=== PATIENT | female | born 1955 | race Caucasian/White ===

== ENCOUNTER → 2018-04-06 | Outpatient (CLI) | payer OTHER | LOC: FIMAGING 11:08 | PROVIDERS: ATTEND Orthopaedic Surgery | DX: M16.0 Bilateral primary osteoarthritis of hip (principal); M51.37 Other intervertebral disc degeneration, lumbosacral region ==

== ENCOUNTER 2018-05-02 08:09 | Inpatient (IN) | payer OTHER ==
[~2018-05-02 08:09] MED LIST: POVIDONE-IODINE 20 ML in SODIUM CL IRRIG SOLUTION 500 ML IRR ONE; ROPIVACAINE 0.2% 80 MG, EPINEPHrine 0.2 MG, KETOROLAC TROMETHAMINE 30 MG in SYRINGE 0 ML IU ONE; TRANEXAMIC ACID 1,000 MG in NS 100 ML IV ONE
[2018-05-02] MEDS ORDERED: BUPIVACAINE/EPI 0.5% 30 ML SDV ONE (08:17)
[2018-05-02] MEDS ORDERED: ceFAZolin 2 GM/DEXTROSE 100 ML IV ONE (08:31)
[2018-05-02] MEDS ORDERED: FAMOTIDINE 20 MG TAB PO ONE (08:31)
[2018-05-02] MEDS ORDERED: ACETAMINOPHEN 325 MG TAB PO ONE (08:31)
[2018-05-02] MEDS ORDERED: DEXAMETHASONE 4 MG/ML VIAL IVP ONE (08:31)
[2018-05-02] MEDS ORDERED: LR 1,000 ML IV ONE (08:35)
--- NOTE | 2018-05-02 08:45 | PDANEPAE ---
ANE Past Medical History - Cardiovascular History Hx Hypertension: No Hx Arrhythmias: No Hx Chest Pain: No Hx Coronary Artery / Peripheral Vascular Disease: No Hx CHF / Valvular Disease: No Hx Palpitations: No - Pulmonary History Hx COPD: No Hx Asthma/Reactive Airway Disease: Yes Hx Recent Upper Respiratory Infection: No Hx Oxygen in Use at Home: No Hx Sleep Apnea: No Pulmonary History Comment: sinus infections trigger asthma - Neurologic History Hx Cerebrovascular Accident: No Hx Seizures: No Hx Dementia: No - Endocrine History Hx Diabetes: No - Renal History Hx Renal Disorders: No - Liver History Hx Hepatic Disorders: No - Neurological & Psychiatric Hx Hx Neurological and Psychiatric Disorders: Yes Neurological / Psychiatric History Comment: 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 depression - Cancer History Hx Cancer: No - Congenital Disorder History Hx Congenital Disorders: No - GI History Hx Gastrointestinal Disorders: Yes Gastrointestinal History Comment: chronic constipation - Other Health History Other Health History: psoriasis. palms of both hands and soles of feet ankles. post menapausal - Chronic Pain History Chronic Pain: Yes (spinal stenosis) - Surgical History Prior Surgeries: 07/14 total L shoulder replacement. 03/14 L sinus surgery. carpal tunnel Left trigger thumb release ANE Review of Systems Review of Systems: ANE Patient History - Allergies Allergies/Adverse Reactions: clindamycin Allergy (Verified 04/12/18 08:41) Swelling/neck,face,throat erythromycin base Allergy (Verified 04/12/18 08:41) Rash etodolac Allergy (Verified 04/12/18 08:41) Hypertension Sulfa (Sulfonamide Antibiotics) Allergy (Verified 04/25/18 14:05) Swelling/Headache - Home Medications Home Medications: Aspirin [Aspirin 81mg (*)] 81 mg PO DAILY 04/12/18 [Last Taken 04/24/18] Betamethasone/Propylene Glyc [Betamethasone Dp Aug 0.05% Crm] 1 gm TP BID [Last Taken 05/02/18 06:00] Calcitriol 3mcg/Gm Oint 1 marcia TP BID 04/12/18 [Last Taken 05/02/18 06:00] Clobetasol Propionate [Clobex] 1 spray TP DAILY PRN 04/12/18 [Last Taken 09:00] Fluticasone/Salmeter 100/50Mcg [Advair 100/50 (*)] 1 puffs IH DAILY 04/12/18 [ Last Taken 05/02/18 06:00] Ibuprofen [Motrin (*)] 400 mg PO Q8HRS PRN 04/12/18 [Last Taken 1 Week Ago ~] Levothyroxine [Synthroid 100 mcg (*)] 100 mcg PO DAILY06 04/12/18 [Last Taken 05:14] traMADol [Ultram 50 mg (*)] 50 mg PO Q6HRS PRN 04/12/18 [Last Taken 1 Week Ago ~ 04/25/18] Ventolin Hfa 05/02/18 [Last Taken 05/02/18 06:45] - Smoking Hx Smoking Status: Former smoker - Family Anes Hx Family Hx Anesthesia Complications: mom and sister difficult to reverse ANE Physical Exam - Airway Neck exam: FROM Mallampati Score: Class 2 Mouth exam: normal dental/mouth exam - Pulmonary Pulmonary: clear to auscultation - Cardiovascular Cardiovascular: regular rate and rhythym - ASA Status ASA Status: III ANE Anesthesia Plan Anesthesia Plan: spinal
--- NOTE | 2018-05-02 09:53 | PDHPUP ---
History & Physical Update H&P update statement: This history and physical update is based on an assessment of the patient which was completed after admission or registration (within 24 hours), but prior to the surgery/procedure. H&P update: H&P reviewed & patient examined, no change in patient's condition since H&P completed
[2018-05-02] MEDS ORDERED: PROPOFOL/EMULSION 500 MG/50 ML BOTTLE IV ONE (10:05)
[2018-05-02] MEDS ORDERED: BUPIVACAINE/DEXTROSE 7.5MG/ML 2 ML SPINAL AMP SP ONE (10:14)
[2018-05-02] MEDS ORDERED: fentaNYL 100 MCG/2 ML INJ ONE ×4 (10:42→12:56)
--- NOTE | 2018-05-02 11:13 | POSTANESTH ---
Post Anesthetic Evaluation Cardiovascular Status: Normal, Stable Respiratory Status: Normal, Stable Level of Consciousness/Mental Status: Can Participate in Eval Pain Control: Adequate, Prn Tx Ordered Nausea/Vomiting Control: Adequate, Prn Tx Ordered Complications Possibly Related to Anesthesia: None Noted
[2018-05-02] MEDS ORDERED: ROCURONIUM 50 MG/5 ML VIAL ONE (11:27)
[2018-05-02] MEDS ORDERED: ePHEDrine SULFATE 25 MG/5 ML SYR ONE (11:27)
[2018-05-02] MEDS ORDERED: LR 500 ML IV PRN (12:13)
[2018-05-02] MEDS ORDERED: PHENYLEPHRINE HCL 100 MCG/ML SYR IVP PRN (12:13)
[2018-05-02] MEDS ORDERED: DIAZEPAM 5 MG/ML 1 ML SYR IVP PRN (12:13)
[2018-05-02] MEDS ORDERED: LABETALOL HCL 5 MG/ML 20 ML MDV IVP PRN (12:13)
[2018-05-02] MEDS ORDERED: METOCLOPRAMIDE 10 MG/2 ML VIAL IVP PRN ×2 (12:13→13:00)
[2018-05-02] MEDS ORDERED: PROMETHAZINE HCL 25 MG/ML INJ IVP PRN ×2 (12:13→13:00)
[2018-05-02] MEDS ORDERED: MEPERIDINE 25 MG/0.5 ML AMP IVP PRN (12:13)
[2018-05-02] MEDS ORDERED: NALOXONE HCL 0.4 MG/ML INJ IVP PRN (12:13)
[2018-05-02] MEDS ORDERED: ONDANSETRON 4 MG/2 ML VIAL IVP PRN ×2 (12:13→13:00)
[2018-05-02] MEDS ORDERED: DEXAMETHASONE 4 MG/ML VIAL IVP PRN (12:13)
[2018-05-02] MEDS ORDERED: ALBUTEROL 3 ML DEYVIAL IH PRN (12:13)
[2018-05-02] MEDS ORDERED: ONDANSETRON 4 MG/2 ML VIAL ONE (12:16)
[2018-05-02] MEDS ORDERED: DEXAMETHASONE 4 MG/ML VIAL ONE (12:16)
[2018-05-02] MEDS ORDERED: GLYCOPYRROLATE 0.2 MG/1 ML VIAL ONE (12:29)
[2018-05-02] MEDS ORDERED: NEOSTIGMINE METHYLSULFATE 5 MG/5 ML SYR ONE (12:29)
[2018-05-02] MEDS: fentaNYL 100 MCG/2 ML INJ IVP PRN ×3 (12:58→13:53)
[2018-05-02] MEDS ORDERED: diphenhydrAMINE 25 MG CAP PO PRN (13:00)
[2018-05-02] MEDS ORDERED: PROMETHAZINE HCL 25 MG SUPPR PR PRN (13:00)
[2018-05-02] MEDS ORDERED: DIPHENOXYLATE/ATROPINE LOMOTIL 1 TAB PO PRN (13:00)
[2018-05-02] MEDS ORDERED: POLYETHYLENE GLYCOL 3350 17 GM PKT PO PRN (13:00)
[2018-05-02] MEDS ORDERED: TEMAZEPAM 15 MG CAP PO PRN (13:00)
[2018-05-02] MEDS ORDERED: ONDANSETRON DISINTEGRATING 4 MG TAB PO PRN (13:00)
[2018-05-02] MEDS ORDERED: LACTULOSE 20 GM/30 ML UDCUP PO PRN (13:00)
[2018-05-02] MEDS ORDERED: MAGNESIUM HYDROXIDE 30 ML UDCUP PO PRN (13:00)
[2018-05-02] MEDS ORDERED: LR 1,000 ML IV SCH (13:00)
[2018-05-02] MEDS ORDERED: BISACODYL 10 MG SUPP PR PRN (13:00)
--- NOTE | 2018-05-02 13:00 | POSTOPPROG ---
Post Op Note Date of Operation: 05/02/18 Surgeon: Adi Kim [employer] Workers: JANI Weiner Anesthesiologist: MD Cait Anesthesia: GET(General Endotracheal) Pre-op Diagnosis: R hip OA Post-op Diagnosis: same Procedure: R ant RENE with ONEL Inf/Abcess present in the surg proc area at time of surgery?: No EBL: 100-500 (300) Drains: Hemovac
[2018-05-02] MEDS ORDERED: CLOBETASOL PROPIONATE TP PRN (13:02)
[2018-05-02] MEDS ORDERED: HYDROmorphONE/DILAUDID 2 MG/ML INJ ONE (13:19)
[2018-05-02] MEDS: HYDROmorphONE/DILAUDID 2 MG/ML INJ IVP PRN ×2 (13:22→13:33)
--- NOTE | 2018-05-02 17:10 | GOP ---
DATE OF OPERATION: 05/02/2018 SURGEON: Adi Kim MD WORKERS COMPENSATION ADMINISTRATOR: Adair Weiner, CSFA, LSA. Veterinary Medical Officer was required for the procedure due to the complex ity of the case. The patient's condition for positioning, prepping and draping, retraction and closu re. ANESTHESIA: General endotracheal. PREOPERATIVE DIAGNOSIS: Right hip osteoarthritis. POSTOPERATIVE DIAGNOSIS: Right hip osteoarthritis. PROCEDURE PERFORMED: Right hip anterior approach hip replacement, MAKOplasty, [facility], greater than 1 hour. FINDINGS: SPECIMENS: Femoral head. ESTIMATED BLOOD LOSS: 300 cc. INDICATIONS: Patient has severe hip osteoarthritis that failed to improve with conservative measures significantly affecting activities of daily living including walking. Patient elected to proceed wi th anterior hip replacement using MAKOplasty robotic guidance. After extensive discussion, all possi ble approaches as well as risks, benefits, pros, cons, expected recovery and prognosis, patient verba lized understanding of risks and benefits of the procedure and signed informed consent prior to the p rocedure. DESCRIPTION OF PROCEDURE: The patient is seen in the holding area and the operative consent and extr emity were signed. The patient was taken to the operating room. After smooth induction of general a nesthesia, patient placed in supine position on the operating table with the arch table extension. H ip and contralateral iliac crest were prepped and draped in usual sterile fashion. Operative site wa s confirmed by signature. Time-out performed. Allergies reviewed. Antibiotics and TXA were adminis tered. Three pins were placed on the contralateral iliac crest and pelvic array was fixed as well visualized by the robot. The desired incision for the anterior approach on the hip was infiltrated with 0.25% Marcaine with epinephrine. Incision was made with a 10 blade, carried through subcutaneous tissue, t o identify the TFL fascia. This was incised in line with the incision. The TFL was retracted latera lly. The lateral femoral circumflex vessels were coagulated with Aquamantys. The deep TFL fascia wa s incised and vastus lateralis was clearly exposed. Pericapsular fat was excised. A T-shaped capsul otomy was performed and the capsule was preserved for later closure. The femoral neck cut was then p erformed based on pre templated calculations and imaging. The femoral head was excised with corkscre w. The acetabulum was exposed in standard fashion. The pulvinar and soft tissues were excised sharply. The pelvic checkpoint was placed in the AIIS. Acetabular registration was performed using the robot . Reaming was performed using the robot to desired size. Cup was impacted in place with robotic linda dance system. A good fixation was achieved. The cup was irrigated and dried, and the liner was impa cted into place achieving good locking within the cup. Femur was exposed in standard fashion. The f emur was broached to the desired size. Trial neck and head were fashioned. Hip was relocated. The position of all components was confirmed at this point fluoroscopically. The foot was externally rota nafisa 90 degrees, extended and stability was confirmed. The hip was then dislocated. The femoral tria l components were removed. The stem was impacted into place. Trunnion was cleaned and dried and the head was impacted on the trunnion. The wound was copiously irrigated including the cup with pulse l avage, and the hip was once again relocated. Component placement was confirmed fluoroscopically. All checkpoints were removed, the pelvic array was also removed. The wound was copiously irrigated w ith sterile solution. Dilute Betadine was then irrigated into the wound and allowed to sit for 3 min utes before being irrigated out. The joint cocktail was injected in the soft tissue. The capsule an d the indirect head of the rectus femoris were repaired with #1 Vicryl sutures. A drain was placed e xiting distally from the TFL. The wound was closed in layers with #0 Quill in the TFL fascia and kristy p subcutaneous fat, 3-0 Versalok in the dermis. The wound was then dressed with sterile dressings. The patient was safely awakened, extubated, taken to recovery room in stable condition. All critical portions of the procedure were performed by myself, Dr. Kim. This operative note was c reated by myself and I was immediately available for emergency cross-coverage at all times. DRAINS: Hemovac x1. COMPLICATIONS: None. IMPLANTS: Trident II hemispherical acetabular shell size 50, with a 32 mm, 0 degree polyethylene yusuf er; Accolade 2, size 5 stem, 127 degree offset, 32 mm, -4 head. /[id number]/MODL
[2018-05-02] MEDS: ACETAMINOPHEN 325 MG TAB PO SCH ×2 (18:05→23:13)
[2018-05-02] MEDS: ceFAZolin 2 GM/DEXTROSE 100 ML IV SCH (20:32)
[2018-05-02] MEDS: SENNOSIDES/DOCUSATE SODIUM TAB PO SCH (20:33)
[2018-05-02] MEDS: FAMOTIDINE 20 MG TAB PO SCH (20:34)
[2018-05-02] MEDS: ASPIRIN 81 MG CHEWABLE TAB PO SCH (20:34)
[2018-05-02] MEDS ORDERED: CALCITRIOL 3 MCG/GM TP SCH (21:00)
[2018-05-02] MEDS: CALCIPOTRIENE 0.005% TP SCH (22:13)
[2018-05-02] MEDS: BETAMETHASONE AUGMENTED 0.05% 15GM CREAM TP SCH (22:13)
[2018-05-02] MEDS: traMADol 50 MG TAB PO PRN (23:13)
[2018-05-03] MEDS: CYCLOBENZAPRINE 10 MG TAB PO PRN ×2 (01:17→10:21)
[2018-05-03] MEDS: ceFAZolin 2 GM/DEXTROSE 100 ML IV SCH (01:39)
[2018-05-03 04:15] VITALS: BP 113/64
[2018-05-03] MEDS: traMADol 50 MG TAB PO PRN (04:44)
[2018-05-03] MEDS: ACETAMINOPHEN 325 MG TAB PO SCH ×2 (04:44→13:39)
[2018-05-03] MEDS: oxyCODONE IR 5 MG TAB PO PRN ×3 (04:45→13:40)
[2018-05-03] MEDS ORDERED: LEVOTHYROXINE 100 MCG TAB PO SCH (06:00)
--- NOTE | 2018-05-03 07:33 | SOAPPROG ---
SOAP Progress Note Assessment/Plan: Assessment: Postop day 1 status post right anterior approach total hip arthroplasty with Lon Plan: Weight-bearing as tolerated, PT/OT DVT prophylaxis: SCDs, Holden Hose, aspirin 81 mg twice daily x3 weeks Incentive spirometry 10 times per hour Disposition: Pending after PT 05/03/18 07:31 Subjective: Patient had some difficulty sleeping increased pain at 3:00 a.m.. Pain better controlled this morning. Denies fevers chills nausea vomiting chest pain shortness breath numbness or tingling Objective: Vital Signs Temp Pulse Resp BP Pulse Ox 36.9 C 89 16 113/64 98 05/03/18 04:00 05/03/18 04:00 05/03/18 04:00 05/03/18 04:00 05/03/18 04:00 Laboratory Results 05/03/18 04:36 05/02/18 05/03/18 05/04/18 05:59 05:59 05:59 Intake Total 1955 Output Total 1285 Balance 670 Awake alert and oriented x3 Easy nonlabored breathing Right hip: Dressing clean dry intact no erythema drainage or signs of infection Hemovac drain removed, site clean dry intact Thigh and calf compartments soft compressible Motor intact to EHL FHL tibialis anterior gastrocsoleus Palpable DP PT pulses ICD10 Worksheet Patient Problems: Problems Problem Status Onset Osteoarthritis of right hip Acute
[2018-05-03] MEDS: ASPIRIN 81 MG CHEWABLE TAB PO SCH (08:44)
[2018-05-03] MEDS: FAMOTIDINE 20 MG TAB PO SCH (08:44)
[2018-05-03] MEDS: SENNOSIDES/DOCUSATE SODIUM TAB PO SCH (08:44)
[2018-05-03] MEDS ORDERED: FLUTICASONE/SALMETER 100/50MCG DISKUS IH SCH (09:00)
--- NOTE | 2018-05-03 09:14 | PDMN ---
Medical Necessity Medical [place] [facility] [place]- OP: R RENE with ONEL ARM AUTH # [id number] FOR CPT 90155 DONE IN PT
[2018-05-03] MEDS: CALCIPOTRIENE 0.005% TP SCH (10:14)
[2018-05-03] MEDS: BETAMETHASONE AUGMENTED 0.05% 15GM CREAM TP SCH (10:14)
--- NOTE | 2018-05-03 13:53 | ASMTLACE ---
IRISE Length of stay for Answers: 2 days current admission Acuity / Level of Answers: Yes Care: Did the patient have an inpatient admission? Comorbidities - select Answers: Opioid dependence all that apply / Chronic pain # of Emergency department Answers: 0 visits in the last 6 months Social determinants Answers: Mental health diagnosis (anxiety, depression, pers onality disorders, etc.) Score: 12 Date Signed: 05/03/2018 01:53 PM Electronically Signed By:LELA Klein
--- NOTE | 2018-05-03 13:55 | ASMTCMCOM ---
CM Note CM Note Notes: Pt medically stable for d/c with spouse. PT rec home/outpatient. No CM d/c needs identified. Date Signed: 05/03/2018 01:54 PM Electronically Signed By:LELA Klein
--- NOTE | 2018-05-08 19:00 | GDS ---
ADMITTING DIAGNOSIS: Right hip osteoarthritis. DISCHARGE DIAGNOSIS: Right hip osteoarthritis. PROCEDURE PERFORMED: A right anterior approach total hip arthroplasty. HOSPITAL COURSE: Patient was admitted on the above date, underwent the above procedure. Pain was re latively well controlled. She received prophylactic antibiotics and DVT prophylaxis with aspirin 81 mg, SCDs, and TAMMY hose. She worked with physical therapy on postop day one and was cleared for disch arge home. DISCHARGE DISPOSITION: Home. CONDITION UPON DISCHARGE: Stable. /[id number]/MODL
== END 2018-05-03 14:09 | disposition home or self-care (01) | DRG 470 ==
LOC: F3N 08:09
PROVIDERS: ADMIT Orthopaedic Surgery; ATTEND Orthopaedic Surgery
PROC: 0SR904Z Replacement of Right Hip Joint with Ceramic on Polyethylene Synthetic Substitute, Open Approach (ICD-10-PCS; principal; 2018-05-02 09:00)
PROC: 8E0Y0CZ Robotic Assisted Procedure of Lower Extremity, Open Approach (ICD-10-PCS; principal; 2018-05-02 09:00)
DX: M16.11 Unilateral primary osteoarthritis, right hip (principal); J45.909 Unspecified asthma, uncomplicated; G51.0 Bell's palsy; F32.9 Major depressive disorder, single episode, unspecified; L40.9 Psoriasis, unspecified; E03.9 Hypothyroidism, unspecified
CPT/HCPCS: 97110-GP; 97116-GP; 97161-GP; 97165-GO; 97530-GP; J0171; J0690; J1100; J1170; J1885; J2270; J2405; J2550; J2704; J2710; J2795; J3010

== ENCOUNTER 2018-05-05 19:39 | Inpatient (IN) | payer OTHER ==
[2018-05-05] MEDS ORDERED: NS 500 ML IV ONE (19:46)
--- NOTE | 2018-05-05 20:07 | EDPHY ---
H & P Time Seen by Provider: 05/05/18 19:45 HPI/ROS: HPI Back and chest pain with taking a deep breath. Recent right hip surgery. 63-year-old female by private vehicle with family. This patient underwent a right total hip replacement by Dr. Nicola Davenprot of the Orthopedic service on of last week. She reports that she has had an intermittent fever since Sunday. She presents to the emergency department with complaint of pain, mid back and mid chest with deep breathing since about 4:00 p.m. this afternoon. She has not had a cough. She denies shortness of breath at rest and states that the pain is much more pronounced when she takes a deep breath. She states that she has had continued right hip pain since her surgery. She states that she has had a documented fever as high as 102 since Sunday. ROS: Constitutional: As above, no chills. No weakness. Eyes: No discharge. No changes in vision. ENT: No sore throat. No nasal congestion or rhinorrhea. Respiratory: No cough. No shortness of breath. Cardiac: As above, no palpitations. Gastrointestinal: No abdominal pain, no vomiting, no diarrhea. Genitourinary: No hematuria. No dysuria or increased frequency with urination. Musculoskeletal: As above. No neck pain. No myalgias or arthralgias. Skin: No rashes. Neurological: No headache. No focal weakness or altered sensation. Past medical history: Degenerative joint disease, spinal stenosis, scoliosis, shoulder replacement, asthma, as above. Social history: Nonsmoker. Here with family. No alcohol Physical Exam: General Appearance: Alert, she is not in distress. This patient is responding to questions appropriately and in full sentences. This patient appears well- hydrated and well-nourished. Eyes: Pupils equal and round no pallor or injection. No lid edema, erythema or injection. Respiratory: There are no retractions, lungs are clear to auscultation anteriorly with good air movement bilaterally. No tachypnea. Cardiovascular: Regular rate and rhythm. Borderline tachycardia. No murmur appreciated. Gastrointestinal: Abdomen is soft and nontender, no masses, bowel sounds normal. No focal tenderness at McBurney's point. No Gilliland sign. Neurological: Motor sensory function is grossly intact. Cranial nerves are normal. Gait is normal. Skin: Warm and dry, no rashes. Musculoskeletal: Neck is supple and nontender. Extremities are symmetrical. She has on compression stockings. Her right lateral thigh incision sites appear clean dry and intact without evidence of drainage or infection. There is very mild erythema involving the right lateral thigh soft tissues in comparison to the contralateral side. I do not appreciate an increase in warmth on palpation of her right lateral thigh compared to the left side as well as her abdomen. Psychiatric: No agitation. No depression. Database: EKG: EKG time is a p.m.; EKG shows a narrow complex normal sinus rhythm with a ventricular rate of 98. The IN, QRS, QT intervals are within normal limits. There are no ST-T wave changes indicative of ischemic or injury pattern. No evidence of right heart strain. Interpreted by me. Imaging: CT angiogram of chest: No PE. No pneumonia. No significant findings. Results were discussed with staff radiologist Dr. Shimon Lamar. Procedures: Emergency department course: Triage vital signs reviewed, she is afebrile, she was mildly tachycardic at 101. Vital signs are otherwise normal. Room air pulse oximetry 97%. IV was placed. She will be started on IV normal saline with 500 cc to be given over the next 2 hr. Her presentation is concerning for possible PE, possible infectious etiology given her history of fever. Patient will be given 0.5 mg for right hip pain. She has not taken any oral pain medication in some time. 9:15 p.m., the patient is currently down in CT. Troponin elevated at 0.19. Her EKG does not show any signs of ischemia or acute injury pattern. I feel acute coronary syndrome is unlikely. This elevated troponin is more likely demand related. 9:20 p.m., patient re-evaluated. She is resting comfortably at this time. She will provide us a urine sample. Results of her blood work including elevated troponin discussed. Need for admission discussed. She denies any chest pain at this time. 9:55 p.m., the patient was re-evaluated, no chest pain at this time. Results of her CT angiogram discussed. Urinalysis does not show evidence of infection. She may have a mild early cellulitis involving her right lateral thigh. This will be discussed with the hospitalist. Plan for admission discussed with her. Hospitalist paged. 10:25 p.m., spoke with on-call hospitalist, Dr. Goel, case discussed in detail with him. He accepts this patient for admission to telemetry observation. The patient will be started on IV Ancef in the emergency department for treatment of possible right lateral thigh cellulitis. The patient's remaining emergency department course under my care has been uneventful. She was admitted in stable condition to the hospitalist service. Cardiology consultation deferred to hospitalist service. Differential Diagnosis: The differential diagnosis on this patient includes but is not limited to pleurisy, pneumonia, PE, urinary tract infection, cellulitis. Postsurgical infection, acute coronary syndrome unlikely. This represents a partial list of diagnoses considered. These considerations are based on history, physical exam , past history, reassessment and diagnostic testing. Smoking Status: Former smoker Constitutional: Initial Vital Signs Temperature (C) 37.0 C 05/05/18 19:47 Heart Rate 101 H 05/05/18 19:47 Respiratory Rate 18 05/05/18 19:47 Blood Pressure 120/85 H 05/05/18 19:47 O2 Sat (%) 97 05/05/18 19:47 O2 Delivery Mode Nasal Cannula O2 (L/minute) 2 Allergies/Adverse Reactions: clindamycin Allergy (Verified 05/05/18 19:45) Swelling/neck,face,throat erythromycin base Allergy (Verified 05/05/18 19:45) Rash etodolac Allergy (Verified 05/05/18 19:45) Hypertension Sulfa (Sulfonamide Antibiotics) Allergy (Verified 05/05/18 19:45) Swelling/Headache Home Medications: Medication Instructions Recorded Albuterol [Ventolin Hfa Inhaler] 1 puffs IH BID PRN 05/06/18 Aspirin [Aspirin 81mg (*)] 81 mg PO BID 05/06/18 Betamethasone Augmented 0.05% 1 marcia TP BID 05/06/18 [Diprolene AF 0.05% (*)] Bisacodyl [Dulcolax] 5 mg PO TID 05/06/18 Calcipotriene [Dovonex] 1 marcia TP BID 05/06/18 Clobetasol Propionate [Clobex] 1 spray TP DAILY PRN 05/06/18 Cyclobenzaprine [Flexeril 10 MG 10 mg PO TID 05/06/18 (*)] Fluticasone/Salmeter 100/50Mcg 1 puffs IH DAILY 05/06/18 [Advair 100/50 (*)] HYDROcodone/APAP 10/325 [Askov 1 tab PO Q4-6PRN PRN 05/06/18 10/325 (*)] Levothyroxine [Synthroid 100 mcg 100 mcg PO DAILY06 05/06/18 (*)] Ondansetron Odt [Zofran Odt 4 mg 4 mg PO Q6 PRN 05/06/18 (*)] Medical Decision Making - Data Points Laboratory Results: Laboratory Results 05/05/18 20:09 05/05/18 20:09 Medications Given: Acetaminophen (Tylenol) 650 mg PO Q4HRS PRN PRN Reason: Pain, Mild/Fever, Can Take PO Stop: 11/01/18 22:24 Last Admin: 05/06/18 00:22 Dose: 325 mg Hydrocodone Bitart/Acetaminophen ([place]kov 10/325) 1 tab PO Q6HRS PRN PRN Reason: Pain, Severe Able to Take PO Stop: 05/16/18 00:06 Last Admin: 05/06/18 14:04 Dose: 1 tab Aspirin (Aspirin) 81 mg PO BID [facility] Stop: 11/02/18 08:59 Last Admin: 05/06/18 11:00 Dose: 81 mg Cyclobenzaprine HCl (Flexeril) 10 mg PO TID PRN PRN Reason: Spasms Stop: 11/02/18 00:59 Last Admin: 05/06/18 04:52 Dose: 10 mg Docusate Sodium (Colace) 100 mg PO BID [facility] Stop: 11/02/18 00:29 Last Admin: 05/06/18 11:00 Dose: 100 mg Enoxaparin Sodium (Lovenox) 40 mg SC DAILY [facility] Stop: 11/02/18 08:59 Last Admin: 05/06/18 11:00 Dose: 40 mg Hydromorphone HCl (Dilaudid) 0.4 mg IVP Q4HRS PRN PRN Reason: Pain, Severe Unable to Take PO Stop: 05/15/18 22:57 Last Admin: 05/06/18 10:57 Dose: 0.4 mg Cefazolin Sodium/Dextrose (Ancef) 100 mls @ 200 mls/hr IV Q8HRS [facility] PRN Reason: Protocol Stop: 06/04/18 23:29 Last Admin: 05/06/18 14:10 Dose: 100 mls Levothyroxine Sodium (Synthroid) 100 mcg PO DAILY06 [facility] Stop: 11/02/18 05:59 Last Admin: 05/06/18 04:52 Dose: 100 mcg Fluticasone/Salmeterol (Advair) 1 puffs IH DAILY [facility] Stop: 11/02/18 08:59 Last Admin: 05/06/18 09:04 Dose: 1 puffs Discontinued Medications Hydromorphone HCl (Dilaudid) 0.5 mg IVP EDNOW ONE Stop: 05/05/18 20:27 Last Admin: 05/05/18 20:42 Dose: 0.5 mg Sodium Chloride (Ns) 500 mls @ 1,000 mls/hr IV EDNOW ONE PRN Reason: Protocol Stop: 05/05/18 20:15 Last Admin: 05/05/18 20:19 Dose: 500 mls Point of Care Test Results: Chemistry 05/05/18 20:48 POC Troponin I 0.19 ng/mL H ng/mL (0.00-0.08) Departure - Departure Disposition: [facility] Inpatient Acute Clinical Impression: Elevated troponin, Hyponatremia, Status post right hip replacement, Pleuritic chest pain, Possible cellulitis right thigh
[2018-05-05 20:22] LABS: PLATELET COUNT 205 10^3/uL (150-400)
[2018-05-05] MEDS ORDERED: HYDROmorphONE/DILAUDID 2 MG/ML INJ IVP ONE (20:26)
[2018-05-05 20:30] LABS: INR 1.08 (0.83-1.16); PROTIME(PATIENT) 14.2 SEC (12.0-15.0)
[2018-05-05] MEDS ORDERED: IOPAMIDOL (ISOVUE 370) 100 ML BTL IV ONE (20:44)
[2018-05-05] MEDS ORDERED: ONDANSETRON DISINTEGRATING 4 MG TAB PO PRN (22:25)
[2018-05-05] MEDS ORDERED: ONDANSETRON 4 MG/2 ML VIAL IVP PRN (22:25)
[2018-05-05] MEDS ORDERED: NITROGLYCERIN 0.4 MG BTL SL PRN (22:27)
--- NOTE | 2018-05-05 23:40 | PDGENHP ---
History and Physical - Chief Complaint Chest pain - History of Present Illness 63 yo F w/ recent R RENE presents to ED due to pleuritic chest pain. She was sent to the ED due to concern for possible PE. In addition, the patient tells me she has been having fevers at home today as high 101. In terms of her chest pain, she tells me this is pleuritic with radiation to her back. She has no prior hx of cardiac disease but does have positive family history. In addition, she hurt her R shoulder during a transfer at home. In the ED her evaluation is notable for mild leukocytosis and indeterminate troponin. She is being admitted for possible cellulitis and evaluation of elevated troponin. Case discussed with ED physician Dr. Andersno; records reviewed and summarized above. History Information - Allergies/Home Medication List Allergies/Adverse Reactions: clindamycin Allergy (Verified 05/05/18 19:45) Swelling/neck,face,throat erythromycin base Allergy (Verified 05/05/18 19:45) Rash etodolac Allergy (Verified 05/05/18 19:45) Hypertension Sulfa (Sulfonamide Antibiotics) Allergy (Verified 05/05/18 19:45) Swelling/Headache Home Medications: Betamethasone/Propylene Glyc [Betamethasone Dp Aug 0.05% Crm] 1 gm TP BID [Last Taken 05/02/18 06:00] Clobetasol Propionate [Clobex] 1 spray TP DAILY PRN 04/12/18 [Last Taken 09:00] Fluticasone/Salmeter 100/50Mcg [Advair 100/50 (*)] 1 puffs IH DAILY 04/12/18 [ Last Taken 05/02/18 06:00] Levothyroxine [Synthroid 100 mcg (*)] 100 mcg PO DAILY06 04/12/18 [Last Taken 05:14] Albuterol [Proventil Inhaler HFA (*)] 2 puffs IH Q6HRS PRN 05/02/18 [Last Taken 05/02/18 06:45] Calcipotriene 1 marcia TP BID 05/02/18 [Last Taken 05/02/18 06:00] Advair Hfa 115-21 Mcg Inhaler 05/05/18 [Last Taken Unknown] Aspirin 05/05/18 [Last Taken Unknown] [place] 5-325 Tablet 05/05/18 [Last Taken Unknown] Zofran 05/05/18 [Last Taken Unknown] I have personally reviewed and updated: family history, medical history - Past Medical History arthritis, asthma Additional medical history: Hypothyroid - Surgical History Additional surgical history: R RENE - Family History Positive for: CAD - Social History Smoking Status: Former smoker Review of Systems Review of Systems: ROS: 10pt was reviewed & negative except for what was stated in HPI & below Physical Exam Physical Exam: Temp Pulse Resp BP Pulse Ox 37.3 C 94 20 110/70 96 05/05/18 20:17 05/05/18 23:10 05/05/18 23:10 05/05/18 23:10 05/05/18 23:10 O2 (L/minute) 2 Constitutional: obese, uncomfortable Eyes: PERRL, EOMI Ears, Nose, Mouth, Throat: no oral mucosal ulcers Cardiovascular: regular rate and rhythym, no murmur, rub, or gallop Respiratory: no respiratory distress, clear to auscultation Gastrointestinal: normoactive bowel sounds, soft, non-tender abdomen Skin: warm, other (Area of erythema R hip posterior to incision, blanchingt) Musculoskeletal: pain with ROM, muscular tenderness Neurologic: AAOx3, CN II-XII Intact Psychiatric: interacting appropriately, not anxious Lab Data & Imaging Review 05/05/18 20:09 05/05/18 20:09 WBC 12.03 10^3/uL (3.80-9.50) H 05/05/18 20:09 RBC 3.26 10^6/uL (4.18-5.33) L 05/05/18 20:09 Hgb 10.0 g/dL (12.6-16.3) L 05/05/18 20:09 Hct 29.4 % (38.0-47.0) L 05/05/18 20:09 MCV 90.2 fL (81.5-99.8) 05/05/18 20:09 MCH 30.7 pg (27.9-34.1) 05/05/18 20:09 MCHC 34.0 g/dL (32.4-36.7) 05/05/18 20:09 RDW 12.8 % (11.5-15.2) 05/05/18 20:09 Plt Count 205 10^3/uL (150-400) 05/05/18 20:09 MPV 8.5 fL (8.7-11.7) L 05/05/18 20:09 Neut % (Auto) 90.7 % (39.3-74.2) H 05/05/18 20:09 Lymph % (Auto) 5.2 % (15.0-45.0) L 05/05/18 20:09 [place] % (Auto) 2.1 % (4.5-13.0) L 05/05/18 20:09 Eos % (Auto) 1.2 % (0.6-7.6) 05/05/18 20:09 Baso % (Auto) 0.2 % (0.3-1.7) L 05/05/18 20:09 Nucleat RBC Rel Count 0.0 % (0.0-0.2) 05/05/18 20:09 Absolute Neuts (auto) 10.91 10^3/uL (1.70-6.50) H 05/05/18 20:09 Absolute Lymphs (auto) 0.63 10^3/uL (1.00-3.00) L 05/05/18 20:09 Absolute Monos (auto) 0.25 10^3/uL (0.30-0.80) L 05/05/18 20:09 Absolute Eos (auto) 0.15 10^3/uL (0.03-0.40) 05/05/18 20:09 Absolute Basos (auto) 0.02 10^3/uL (0.02-0.10) 05/05/18 20:09 Absolute Nucleated RBC 0.00 10^3/uL (0-0.01) 05/05/18 20:09 Immature Gran % 0.6 % (0.0-1.1) 05/05/18 20:09 Immature Gran # 0.07 10^3/uL (0.00-0.10) 05/05/18 20:09 PT 14.2 SEC (12.0-15.0) 05/05/18 20:09 INR 1.08 (0.83-1.16) 05/05/18 20:09 APTT 28.5 SEC (23.0-38.0) 05/05/18 20:09 Sodium 128 mEq/L (135-145) L 05/05/18 20:09 Potassium 3.9 mEq/L (3.5-5.2) 05/05/18 20:09 Chloride 97 mEq/L (97-110) 05/05/18 20:09 Carbon Dioxide 23 mEq/l (22-31) 05/05/18 20:09 Anion Gap 8 mEq/L (6-14) 05/05/18 20:09 BUN 10 mg/dL (7-23) 05/05/18 20:09 Creatinine 0.7 mg/dL (0.6-1.0) 05/05/18 20:09 Estimated GFR > 60 05/05/18 20:09 Glucose 110 mg/dL (70-100) H 05/05/18 20:09 Calcium 8.3 mg/dL (8.5-10.4) L 05/05/18 20:09 POC Troponin I 0.19 ng/mL (0.00-0.08) H 05/05/18 20:48 Urine Color PALE YELLOW 05/05/18 21:30 Urine Appearance CLEAR 05/05/18 21:30 Urine pH 6.0 (5.0-7.5) 05/05/18 21:30 Ur Specific [place] 1.013 (1.002-1.030) 05/05/18 21:30 Urine Protein NEGATIVE (NEGATIVE) 05/05/18 21:30 Urine Ketones TRACE (NEGATIVE) H 05/05/18 21:30 Urine Blood NEGATIVE (NEGATIVE) 05/05/18 21:30 Urine Nitrate NEGATIVE (NEGATIVE) 05/05/18 21:30 Urine Bilirubin NEGATIVE (NEGATIVE) 05/05/18 21:30 Urine Urobilinogen NEGATIVE EU (0.2-1.0) 05/05/18 21:30 Ur Leukocyte Esterase TRACE (NEGATIVE) H 05/05/18 21:30 Urine RBC 1-3 /hpf (0-3) 05/05/18 21:30 Urine WBC 3-5 /hpf (0-3) H 05/05/18 21:30 Ur Epithelial Cells TRACE /lpf (NONE-1+) 05/05/18 21:30 Urine Mucus TRACE /lpf (NONE-1+) 05/05/18 21:30 Urine Glucose NEGATIVE (NEGATIVE) 05/05/18 21:30 Imaging Review: Imaging Impressions Chest/Thorax CTA 05/05/18 20:41 Impression: 1. There is no CT evidence of pulmonary artery thromboemboli. 2. Small hiatal hernia. 3. Mild generalized hepatic steatosis. Findings were discussed with Jes Anderson MD at 21:35, on 05/05/2018. Visualized and Interpreted EKG results: Yes EKG Interpretation: Positive for: normal sinsus rhythm, T waves inversion (lead III) Assessment & Plan Assessment: 63 yo F w/ hx of OA, asthma, and hypothyroid presents with likely cellulitis and indeterminate troponin. Plan: 1. Suspected RLE cellulitis - Patient reports fever to 101 at home; Tmax 37.3 while here with WBC of 12k. This is in the setting of R RENE performed on . Overall this seems superficial and fairly mild. - Cefazolin 2 g IV q8h - Blood cultures pending - Consider orthopedic consult if worsening 2. Elevated troponin - Patient having pleuritic chest pain with radiation to her back. ECG (personally reviewed/interpreted) without clear signs of acute ischemia. It is possible this is demand ischemia related to infection but could signal underlying, undiagnosed CAD. - Trend cardiac enzymes, monitor on telemetry - ECG PRN for chest pain - NTG PRN for chest pain - Cardiology consult placed in [facility]; NPO @ [place] 3. Hyponatremia - Possible related to infection; could also be related to SIADH from pain. - Check Osms, Lynne - Repeat BMP in the morning after small NS bolus 4. Normocytic anemia - Likely related to recent surgery; stable from most recent value. - Check ferritin with AM labs 5. Asthma - Continue home medications pending reconciliation 6. Hypothyroid - Continue LTX Diet - NPO @ [place] Code - Full Ppx - LMWH Dispo - Admit under observation status
[2018-05-06] MEDS: ceFAZolin 2 GM/DEXTROSE 100 ML IV SCH ×4 (00:12→22:06)
[2018-05-06] MEDS: HYDROCODONE/APAP 10/325 TAB PO PRN ×3 (00:22→20:36)
[2018-05-06] MEDS: ACETAMINOPHEN 325 MG TAB PO PRN ×2 (00:22→20:36)
[2018-05-06] MEDS: DOCUSATE SODIUM 100 MG CAP PO SCH ×3 (00:32→20:35)
[2018-05-06 04:37] LABS: PLATELET COUNT 198 10^3/uL (150-400)
[2018-05-06] MEDS: LEVOTHYROXINE 100 MCG TAB PO SCH (04:52)
[2018-05-06] MEDS: HYDROmorphONE/DILAUDID 1 MG/ML INJ IVP PRN ×2 (04:52→10:57)
[2018-05-06] MEDS: CYCLOBENZAPRINE 10 MG TAB PO PRN ×2 (04:52→20:35)
[2018-05-06] MEDS ORDERED: LIDOCAINE 1% 300 MG/30 ML SDV ONE (08:46)
[2018-05-06] MEDS: FLUTICASONE/SALMETER 100/50MCG DISKUS IH SCH (09:04)
[2018-05-06] MEDS: ENOXAPARIN 40 MG/0.4 ML SYR SC SCH (11:00)
[2018-05-06] MEDS: ASPIRIN 81 MG CHEWABLE TAB PO SCH ×2 (11:00→20:35)
--- NOTE | 2018-05-06 11:13 | ASMTCMCOM ---
CM Note CM Note Notes: Pt is a 63 y/o female admitted for chest pain. Pt will most likely d/c independent when medically stable. No therapies ordered at this time. Cards has been consulted. CM available for changes. Plan: Independent Date Signed: 05/06/2018 11:12 AM Electronically Signed By:GA Cuevas
--- NOTE | 2018-05-06 11:32 | ECHO ---
[email or web address] [address] Main: [phone] Fax: Transthoracic Echocardiogram Name: FERNANDEZ ORTIZ MR#: [id number] Study Date: 05/06/2018 Study Time: 10:05 AM Date of : 1955 Age: 63 year(s) Height: 160 cm (63 in.) Weight: 83.46 kg (184 lb.) BSA: 1.87 m2 Gender: Female Examination: Echo Indication: Postive troponin/chest pain Image Quality: Fair Contrast: Requested by: Destiny Stein BP: 111 mmHg/64 mmHg Heart Rate: Rhythm: Indication: Postive troponin/chest pain Procedure Staff Tank Car Mechanic: Nicolasa Mabry RDCS Reading Physician: Destiny Stein MD Requesting Provider: Conclusions: Normal size left ventricle. No LV hypertrophy. Normal global systolic LV function. The ejection fraction is estimated to be 65-70 %. No regional wall motion abnormality. Normal diastolic LV function. Normal size right ventricle. Normal RV function. Mild mitral valve regurgitation is present. Trivial tricuspid valve regurgitation. No pericardial effusion. There is no previous echocardiogram for comparison. Measurements: Chambers Valvular Assessment AV/MV Valvular Assessment TV/PV Normal Normal Normal Name Value Range Name Value Range Name Value Range Ao Ava (MM): 2.9 cm (2.2 cm-3.7 AV Vmax: 1.63 m/s (1 m/s-1.7 cm) m/s) IVSd (2D): 0.5 cm (0.6 cm-1.1 AV meanP mmHg ( - ) cm) MV E Vmax: 0.78 m/s ( - ) LVDd (2D): 4.7 cm (3.9 cm-5.3 MV A Vmax: 0.72 m/s ( - ) cm) MV E/A: 1.08 ( - ) LVDs (2D): 2.7 cm (2.1 cm-4 cm) LVPWd (2D): 0.6 cm ( - ) LVEF (BP): 74 % (>=55 %) EF Range: 65-70 % Continued Measurements: Patient: FERNANDEZ ORTIZ Study Date: 05/06/2018 Page 1 of 2 10:05 AM Chambers Valvular Assessment AV/MV Name Value Name Value LADs: 3.7 cm MV E' Septal: 0.09 m/s LADs Lon.5 cm MV E/E' Septal: 8.90 LA Area: 18.3 cm2 MV E/E' Lateral: 7.50 LA Volume: 55 ml LA Volume Index: 29.4 ml/m2 Findings: Left Ventricle: Normal size left ventricle. No LV hypertrophy. Normal global systolic LV function. The ejection fraction is estimated to be 65-70 %. No regional wall motion abnormality. Normal diastolic LV function. Right Ventricle: Normal size right ventricle. Normal RV function. Left Atrium: The left atrium is normal in size. Right Atrium: The right atrium is normal in size. Mitral Valve: The mitral valve is normal in appearance and function. Mild mitral valve regurgitation is present. Aortic Valve: The aortic valve is normal in appearance and function. There is no aortic valve regurgitation. Tricuspid Valve: The tricuspid valve is normal in appearance and function. Trivial tricuspid valve regurgitation. Pulmonic Valve: Pulmonary valve not well visualized. Aorta: The aorta is normal. Pericardium: No pericardial effusion. (No Signature Object) Patient: FERNANDEZ ORTIZ Study Date: 05/06/2018 Page 2 of 2 10:05 AM [id number]
--- NOTE | 2018-05-06 13:01 | GCON ---
CARDIOLOGY CONSULT DATE OF CONSULTATION: 05/06/2018 REFERRING PHYSICIAN: Dr. Nunez CHIEF COMPLAINT: Chest pain. HISTORY OF PRESENT ILLNESS: We were asked by Dr. Nunez to visit with the patient. The patient is a 63-year-old female with no known cardiac history. She had a right total hip replacement on May 02. Yesterday evening, she presented to the ER with pleuritic chest discomfort that radiated to her back, fevers to 102 at home, and intermittent right hip pain. Initial troponin 0.19, followed by 0.136. She was, therefore, admitted for observation. She is also being treated for possible right hip prost hetic infection. She overall reports feeling better upon my evaluation. The chest pain comes and goes, but is overall better. She has also had a cough. REVIEW OF SYSTEMS: A full 10-point review of systems was performed and is negative, except that whic h is outlined in the History of Present Illness. PAST MEDICAL HISTORY: 1. Hyponatremia. 2. Hypothyroidism. 3. Osteoarthritis, status post right total hip replacement last week. 4. Reactive airways disease. OUTPATIENT MEDICATIONS: Albuterol, aspirin, betamethasone cream, Dulcolax, Dovonex, Clobex, Flexeril , fluticasone inhaler, [place] p.r.n., Synthroid 100 mcg daily, and Zofran p.r.n. SOCIAL HISTORY: The patient is . She is a past smoker. FAMILY HISTORY: Notable for coronary disease. PHYSICAL EXAM: VITAL SIGNS: Blood pressure is 121/58, heart rate 92, oxygen saturation 91% on room air. She is afebrile. GENERAL: Well-appearing middle-aged female in no acute distress. HEENT: Sclerae clear of jaundice. Mucous membranes are moist. Poor dentition. Sclerae are anicteric. CARDIOVASCULAR: JVP is less than 10. Carotids equal and 2+ bilaterally, without bruit. Regular rate and rhythm, with a 1/6 systo lic ejection murmur at the base and a 1/4 early diastolic murmur at the left lower sternal border. L UNGS: Clear anteriorly and laterally. ABDOMEN: Soft and nontender, without obvious bruits, masses, or hepatosplenomegaly. EXTREMITIES: Warm, well perfused. No ankle edema. She does have some mini mal erythema around her right anterior hip dressing. NEURO: Alert and oriented x3, without gross fo xiomara neurologic deficits. Appropriate mood and affect. Telemetry: Sinus rhythm. LABORATORY DATA: White count 9.3, hematocrit 27.6, and platelets are 198. ESR is 49. INR 1.08. So dium 128, potassium 3.9, chloride 97, BUN 10, creatinine 0.7, glucose 110. Troponin as detailed abov e. Third is pending. CRP is pending. EKG reviewed by me: Sinus rhythm, minimal anterior ST depression. Echocardiogram reviewed by me: Normal LV size and systolic function. No regional wall motion abnorm alities. Normal diastolic function. Mild mitral regurgitation. No pericardial effusion. CT angiogram: No pulmonary embolism. Small hiatal hernia. Hepatic steatosis. Ascending and descen ding thoracic aorta are normal. No coronary arterial calcific plaque. Normal pericardium. Right lower extremity negative for DVT. ASSESSMENT AND PLAN: A 63-year-old female, 4 days status post total hip replacement, admitted with p leuritic chest pain and fever. She has a minimally elevated troponin. 1. Troponin elevation: Will continue to cycle troponin, make sure we have her peak. EKG is only mi nimally abnormal. This is likely demand ischemia in the setting of fever and anemia. Echocardiogram is reassuring with normal ejection fraction, normal diastolic function, and no regional wall motion abnormalities. It is also reassuring that she has no calcified plaque seen on chest CT. Would recom mend outpatient Lexiscan nuclear stress test for further risk stratification. Continue aspirin. Rep eat EKG now. Differential diagnosis for pleuritic past chest pain includes musculoskeletal, viral in fection. PE has been ruled out. Would recommend influenza screen. 2. Fever and possible hip infection: Per Internal Medicine and Orthopedics. She is on antibiotics. 3. Anemia: Likely related to her recent surgery. Could be contributing to minimally elevated tropo ayala/demand ischemia. Thank you for allowing us to participate in the patient's care. I will follow with you. /[id number]/MODL
--- NOTE | 2018-05-06 13:06 | GCON ---
CHIEF COMPLAINT: Chest pain and fevers. HISTORY OF PRESENT ILLNESS: 63-year-old female who is postop day 4, status post right total hip arth roplasty. She discharged without symptoms on May 03. She began recording her temperature that evening and ran temperatures ranging from 100 to 102.4 throughout the next 48 hours. In additio n, she feels she tweaked her right shoulder possibly trying to get out of a bed or from up from a angelique ir, which has also been causing her pain, and lastly, she began having chest pain with inspirations t hat radiated to her back. She denied any shortness of breath. She has no prior history of cardiac dis ease. She contacted the on-call service and was advised to present to the emergency department. Flo p in the emergency department was negative for PE; however, she did have a slightly elevated cardiac enzymes, as well as mild leukocytosis. She does not recall if any redness or swelling in her thigh nguyen s worsened. She has already received 2 doses of IV Ancef 2 g. She was taking Flexeril, Percocet, supp lemented with Tylenol for pain at home. She discontinued the Celebrex as this turned her urine a dark mustard color. ALLERGIES: Reviewed, include clindamycin, erythromycin, etodolac, and sulfa antibiotics. HOME MEDICATIONS: Reviewed. PAST MEDICAL HISTORY: Includes asthma, hypothyroid. PAST SURGICAL HISTORY: As above. REVIEW OF SYSTEMS: 10-point review of systems was reviewed and negative, except for as stated in HPI . PHYSICAL EXAM: GENERAL: Patient is awake, alert, and oriented in no acute distress. Easy, nonlabored breathing. EXTREMITIES: Right hip shows some mild swelling and very mild lateral erythema compared t o the contralateral side. Dressings are clean, dry, and intact. There is no drainage. The lateral are a of swelling and mild erythema is nontender to palpation. She has no calf pain, but has posterior th igh and popliteal pain with palpation and active and passive dorsiflexion. She has palpable DP, PT pu lses. Sensation is intact to light touch. LABORATORY/IMAGING: White count 9.3 as of this morning, May 06, hemoglobin 9.2, likely hemodilu tional compared to the 10.0 from yesterday evening. She does have a left shift with neutrophil percen tage with 90.7% on admission and 85.7% this morning. CT angio was negative for PE. EKG demonstrates normal sinus rhythm without acute signs of ischemia. ASSESSMENT/PLAN: 63-year-old female with difficulty with pain management given recent total hip arth roplasty, documented fevers ranging from 100 to 102.4 for the last 48 hours. She has been afebrile si nce admission to the hospital. Also with pleuritic chest pain and mildly elevated cardiac enzymes. Di fferential diagnosis, includes cellulitis, deep vein thrombosis, indeterminate significance of mildly elevated cardiac enzymes. At this point, I recommend baseline inflammatory laboratory levels, venous duplex of the patient's ri t lower extremity to rule out deep vein thrombosis, and aspiration of the patient's right hip joint with aspirate sent for cell count, cultures, and Gram stain. Discussed with the patient that a negat lennie finding of her hip aspiration may be false given that she has already had 2 doses of antibiotics. Will discuss findings with the patient later on this evening. She can continue to be weightbearing a s tolerated, working with PT. Recommend incentive spirometry. The patient understands and agrees. Hill lozada answered. /[id number]/MODL
[2018-05-06] MEDS ORDERED: ALBUTEROL 60 PUFFS/8 GM MDI IH PRN (16:15)
--- NOTE | 2018-05-06 16:16 | HOSPPROG ---
Hospitalist Progress Note Assessment/Plan: 63 yo F w recent RENE a/w fever, pleuritic pain, + trop fever: being treated for wound cellulitis elevated inflammatory markers early for prosthetic infection no pneumonia UA OK check influenza, viral panel- influenza would be unifying diagnosis ? prosthetic infection: as above + trop: seen by cardiology continue asa no coronary calcification possible toxic viral effect proph: lmwh unless contraindicated by ortho dispo: change to inpt Subjective: case d/w dr bliss Objective: Vital Signs Temp Pulse Resp BP Pulse Ox 36.7 C 92 19 121/58 H 91 L 05/06/18 11:23 05/06/18 11:23 05/06/18 11:23 05/06/18 11:23 05/06/18 11:23 Microbiology 05/06/18 10:15 Gram Stain - Final Synovial Fluid - Aspirate Laboratory Results 05/06/18 11:10 05/05/18 05/06/18 05/07/18 05:59 05:59 05:59 Intake Total 875 Output Total 750 Balance 125 PT 14.2 SEC (12.0-15.0) 05/05/18 20:09 INR 1.08 (0.83-1.16) 05/05/18 20:09 - Physical Exam Constitutional: no apparent distress, appears nourished Eyes: PERRL, anicteric sclera Ears, Nose, Mouth, Throat: moist mucous membranes, hearing normal Cardiovascular: regular rate and rhythym, no murmur, rub, or gallop Respiratory: no respiratory distress, no rales or rhonchi Gastrointestinal: normoactive bowel sounds, soft, non-tender abdomen Genitourinary: no bladder fullness, No campos in urethra Skin: warm, normal color Musculoskeletal: full muscle strength, other (R hip edematous, not warm or fluctuant) Psychiatric: interacting appropriately, not anxious ICD10 Worksheet Patient Problems: Problems Problem Status Onset Elevated troponin Acute Hyponatremia Acute Pleuritic chest pain Acute Status post right hip replacement Acute Osteoarthritis of right hip Acute
--- NOTE | 2018-05-06 17:15 | PDMN ---
Medical Necessity Medical necessity: MCG: M70 cellulitis: recent RENE now with fever, elevated trop. pleuritic pain. status changed to INPT 05/06/18 for ongoing med nec care- further monitoring and tx of wound cellulitis req further IV abx tx > 2 MN>
[2018-05-06] MEDS ORDERED: POLYETHYLENE GLYCOL 3350 17 GM PKT PO ONE (18:45)
--- NOTE | 2018-05-06 22:14 | CPEKG ---
Test Reason : OPEN Blood Pressure : / mmHG Vent. Rate : 098 BPM Atrial Rate : 098 BPM P-R Int : 159 ms QRS Dur : 085 ms QT Int : 352 ms P-R-T Axes : 040 018 010 degrees QTc Int : 450 ms Sinus rhythm Confirmed by Jes Anderson ([id number]) on 05/06/2018 10:13:39 PM Referred By: Confirmed By:Jes Anderson
[2018-05-07] MEDS: HYDROmorphONE/DILAUDID 1 MG/ML INJ IVP PRN ×2 (04:36→20:33)
[2018-05-07] MEDS: LEVOTHYROXINE 100 MCG TAB PO SCH (04:37)
[2018-05-07] MEDS: ceFAZolin 2 GM/DEXTROSE 100 ML IV SCH ×3 (05:50→22:31)
--- NOTE | 2018-05-07 07:29 | SOAPPROG ---
SOAP Progress Note Assessment/Plan: Assessment: Postop day 5 status post right anterior total hip. Readmitted on postop day 3 with chest pain and fevers Plan: Weight-bearing as tolerated, PT/OT Cardiac workup essentially negative. Troponin elevation likely due to demand ischemia in the setting of postoperative anemia. Appreciate cardiology input and recommendations Fevers: No significant cellulitis, no abnormal hip pain for this stage in her postoperative course, urine culture with 10-20K CFU, hip aspiration culture pending, g stain negative but with 4+ PMNs, cell count was rejected due to inadequate sample. Currently on IV Ancef. Consider infectious disease consultation Given clinical presentation, will continue to observe. Keep NPO until 1st preliminary aspiration culture returns and to see how patient does with ambulation this morning. Hold Lovenox 05/07/18 07:28 05/07/18 07:29 05/07/18 07:30 Subjective: No acute events. Pain well controlled. Reports 08/07. Denies fevers chills nausea vomiting chest pain shortness of breath numbness or tingling Objective: Vital Signs Temp Pulse Resp BP Pulse Ox 36.9 C 82 10 L 113/74 97 05/07/18 04:00 05/07/18 04:00 05/07/18 04:00 05/07/18 04:00 05/07/18 04:00 Microbiology 05/06/18 18:06 Respiratory Panel (PCR) - Final Nasal, Sinus - Swab No Organism Detected By Pcr 05/06/18 05/07/18 05/08/18 05:59 05:59 05:59 Intake Total 980 Balance 980 PT 14.2 SEC (12.0-15.0) 05/05/18 20:09 INR 1.08 (0.83-1.16) 05/05/18 20:09 No acute distress Easy nonlabored breathing Right hip no significant cellulitis, dressing clean dry intact Thigh and calf compartments soft compressible Minimal pain with logroll and axial load Neurovascularly intact distally ICD10 Worksheet Patient Problems: Problems Problem Status Onset Elevated troponin Acute Hyponatremia Acute Pleuritic chest pain Acute Status post right hip replacement Acute Osteoarthritis of right hip Acute
[2018-05-07] MEDS: DOCUSATE SODIUM 100 MG CAP PO SCH ×2 (08:05→20:33)
[2018-05-07] MEDS: ASPIRIN 81 MG CHEWABLE TAB PO SCH ×2 (08:05→20:33)
[2018-05-07] MEDS: POLYETHYLENE GLYCOL 3350 17 GM PKT PO SCH ×2 (08:41→10:57)
[2018-05-07] MEDS: FLUTICASONE/SALMETER 100/50MCG DISKUS IH SCH (09:26)
[2018-05-07] MEDS: ENOXAPARIN 40 MG/0.4 ML SYR SC SCH (10:57)
--- NOTE | 2018-05-07 13:46 | PDCARPN ---
Cardiology Progress Note Assessment/Plan: Assessment/plan: 63-year-old female status post right total hip replacement on May 02. She was admitted on May 05 with pleuritic chest pain, fever, elevated inflammatory markers. Minimally elevated troponin. Echo normal. EKG nonischemic. 1. Chest pain and minimally elevated troponin: Evaluation negative for PE. This does not appear to be acute coronary syndrome. Could be related to viral infection, pericarditis, musculoskeletal. Overall improving. Would recommend further risk stratification with outpatient Lexiscan nuclear stress test. Continue aspirin. 2. Status post total hip replacement with possible infection: Conservative management. On antibiotics. Followed by Dr. Kim 3. Anemia: The expected postoperatively. May have contributed to some element of demand ischemia. Stable. 4. Hyponatremia: Low urine awesome zone low urine sodium. Per Internal Medicine. Appears stable from cardiovascular standpoint. Will sign off. Please call with questions. Follow-up with me at [facility] once outpatient nuclear stress test has been performed. 05/07/18 13:47 Subjective: Feels better today. She did have some chest discomfort when sitting up in a chair but this resolved when she went back in bed. She just took a shower without any chest pain. No dyspnea. Mild hip discomfort on her operated side. Reviewed/Discussed With: hospitalist (Dr. Nunez) Objective: Vital Signs (8 Hrs) Temp Pulse Resp BP Pulse Ox 05/07/18 12:00 37.1 C 92 8 L 115/57 L 95 05/07/18 09:28 85 14 96 05/07/18 08:00 36.8 C 81 18 122/73 H 96 Intake/Output (24 Hrs) 05/06/18 05/07/18 05/08/18 05:59 05:59 05:59 Intake Total 980 Balance 980 Intake: Oral (ml) 730 IV Infused (ml) 250 ceFAZolin 2 GM/DEXTROSE 250 100 ml @ 200 mls/hr IV Q8HRS [facility] Rx#:[id number] No acute distress. Up in chair JVP less than 10. Regular rate and rhythm without murmur or gallop Lungs clear bilaterally without wheeze rhonchi rales No lower extremity edema Result Diagrams: 05/06/18 11:10 05/05/18 20:09 Telemetry: Sinus rhythm and sinus tachycardia. ICD10 Worksheet Patient Problems: Problems Problem Status Onset Elevated troponin Acute Hyponatremia Acute Status post right hip replacement Acute Pleuritic chest pain Acute Osteoarthritis of right hip Acute
[2018-05-07] MEDS: HYDROCODONE/APAP 10/325 TAB PO PRN ×2 (14:07→22:29)
[2018-05-07] MEDS ORDERED: POLYETHYLENE GLYCOL 3350 17 GM PKT PO ONE (15:26)
--- NOTE | 2018-05-07 15:28 | HOSPPROG ---
Hospitalist Progress Note Assessment/Plan: 63 yo F w recent RENE a/w fever, pleuritic pain, + trop fever: being treated for wound cellulitis elevated inflammatory markers early for prosthetic infection no pneumonia UA OK viral panel neg check lft's ? prosthetic infection: as above + trop: seen by cardiology continue asa no coronary calcification possible toxic viral effect proph: lmwh unless contraindicated by ortho dispo: change to inpt Subjective: case d/w dr rizzo Objective: Vital Signs Temp Pulse Resp BP Pulse Ox 37.1 C 92 8 L 115/57 L 95 05/07/18 12:00 05/07/18 12:00 05/07/18 12:00 05/07/18 12:00 05/07/18 12:00 Microbiology 05/06/18 18:06 Respiratory Panel (PCR) - Final Nasal, Sinus - Swab No Organism Detected By Pcr 05/06/18 05/07/18 05/08/18 05:59 05:59 05:59 Intake Total 980 Balance 980 PT 14.2 SEC (12.0-15.0) 05/05/18 20:09 INR 1.08 (0.83-1.16) 05/05/18 20:09 - Physical Exam Constitutional: no apparent distress, appears nourished Eyes: PERRL, anicteric sclera Ears, Nose, Mouth, Throat: moist mucous membranes, hearing normal Cardiovascular: regular rate and rhythym, no murmur, rub, or gallop Respiratory: no respiratory distress, no rales or rhonchi Gastrointestinal: normoactive bowel sounds, soft, non-tender abdomen Genitourinary: No campos in urethra Skin: warm Musculoskeletal: other (hip edematous, not fluctuant) Neurologic: AAOx3 ICD10 Worksheet Patient Problems: Problems Problem Status Onset Elevated troponin Acute Hyponatremia Acute Pleuritic chest pain Acute Status post right hip replacement Acute Osteoarthritis of right hip Acute
--- NOTE | 2018-05-07 16:29 | ASMTCMCOM ---
CM Note CM Note Notes: Pt reports nervousness about going home independently. RN notified CM and MD. Md ordered PT/OT eval. CM to follow to determine discharge needs. Plan: TBD Date Signed: 05/07/2018 04:29 PM Electronically Signed By:GA Mackey
--- NOTE | 2018-05-07 18:37 | GCON ---
INFECTIOUS DISEASE CONSULTATION DATE OF CONSULTATION: 05/07/2018 REFERRING PHYSICIAN: Adi Kim MD REASON FOR CONSULTATION: Query postop prosthetic infection of the right total hip arthroplasty. HISTORY OF PRESENT ILLNESS: A 63-year-old female who underwent a right anterior total hip arthroplasty with Lon, 05/02/2018, and received perioperative cefazolin. She was discharged the following day in good health. The patient states that on the , she started developing low-grade temperatures and generalized myalgia, and on the 6th, developed mid back and chest pain with deep breathing. Patient presented to the emergency room and underwent evaluation for CT-PE, which was negative for PE and pneumonia. Troponins were obtained and slightly elevated, but patient had a normal echocardiogram, with a normal LV size and systolic function and mild mitral regurgitation. She also had a respiratory PCR following hospitalization, 2017, that was negative. Cardiology evaluated the patient, and elevated troponin was attributed to demand ischemia from mild anemia and fever. On admission, patient was found to have some erythema laterally on her right hip, possibly consistent with cellulitis. She was started on cefazolin 2 g IV q.12 on admission, and then underwent aspiration of her hip on 05/06/2017, which had minimal joint fluid. Procedure required injection of sterile saline, and 3 mL of fluid was aspirated. Unfortunately, cell count was not able to be obtained, and culture showed 4+ PMNs and has no growth to date. Blood cultures were also negative from 05/05/2017. White count was slightly elevated on admission and rapidly decreased to normal at 9.3. CRP was markedly elevated at 316. ALLERGIES: The patient has throat swelling to clindamycin; rash, erythromycin; swelling to sulfa; hypertension to etodolac. PAST MEDICAL HISTORY: Arthritis, asthma, hypothyroidism. PAST SURGICAL HISTORY: Right total hip arthroplasty. FAMILY HISTORY: Positive for CAD. SOCIAL HISTORY: Former smoker. REVIEW OF SYSTEMS: A complete 10-point review of systems was performed and is negative, except as mentioned in the HPI. PHYSICAL EXAM: VITAL SIGNS: Patient has been afebrile throughout the hospitalization. No hypotension or significant tachycardia. Blood pressure 128 /74, heart rate 86, respiratory rate 15, saturation 94% on room air, temperature 36.8. GENERAL: This is a pleasant woman, lying in bed, who is articulate, in no acute distress. HEENT: Pupils are reactive. No conjunctival hemorrhage. No jaundice. Extraocular muscles were intact. Oropharynx: Fair dentition. Moist mucous membranes. No oral ulcerations. NECK: Supple. CARDIOVASCULAR: Regular rate and rhythm. No murmurs were appreciated by me. CHEST: Clear to auscultation bilaterally. ABDOMEN: Soft, nontender. Bowel sounds are present. EXTREMITIES: Right incisional site with silver dressing in place. No strike through. In the right groin, more laterally along the thigh, was a strip of patchy erythema with associated warmth characterized as moderate intensity. No crepitus was appreciated. No fluctuance. Minimal induration. Range of motion of hip: Approximately 70 degrees of flexion. Her range of motion was within expected range for postoperative period. LABORATORY DATA: Hematocrit 42, prior to surgery 27. Today, last white count 9.3, CRP 316. Blood cultures from admission are no growth to date. Synovial fluid culture is no growth to date. IMAGING: As per HPI. ASSESSMENT AND PLAN: This is a 63-year-old woman who underwent a right anterior total hip arthroplasty with Lon on the 3rd, who developed a fever at home to 102.3, with erythema, lateral thigh, that is distal from incision, with good range of motion of hip. Unfortunately, cultures of the hip were obtained after antibiotics were received, and cell count was not obtainable. Nonetheless , the patient has fairly good range of motion postoperatively, and mild muscular hip pain has significantly improved since admission. Further, the patient's fever has defervesced since admission and starting cefazolin. My current assessment is cellulitis, without clear evidence for deeper infection. Most likely pathogen, Streptococcus, but cannot exclude other pathogens, such as Staphylococcus. Response to cefazolin suggests susceptible organisms, making methicillin-resistant Staphylococcus aureus less likely. 1. Continue cefazolin. Could reduce dose to 1 g IV q.8, but will leave at higher dose for now. 2. Will continue to follow cultures. 3. Will monitor clinically for recession of erythema on the right hip, with hopes to transition to p.o. in the next day or two. If clinical change, will reassess need for repeat aspiration and/or imaging of the right hip and thigh. 4. Patient warned that there is still a chance for deeper /joint infection and will continue to monitor Thank you for this consultation. Time was 80 minutes, greater than 50% of time spent with education and counseling of the patient and her at bedside and coordination of care with Orthopedics and hospitalist. /[id number]/MODL MTDD
[2018-05-07] MEDS: CYCLOBENZAPRINE 10 MG TAB PO PRN (20:33)
[2018-05-08] MEDS: POLYETHYLENE GLYCOL 3350 17 GM PKT PO SCH ×2 (01:40→09:02)
[2018-05-08] MEDS: ACETAMINOPHEN 325 MG TAB PO PRN ×2 (03:15→21:37)
[2018-05-08] MEDS: HYDROCODONE/APAP 10/325 TAB PO PRN ×3 (04:37→18:44)
[2018-05-08 05:05] LABS: PLATELET COUNT 242 10^3/uL (150-400)
[2018-05-08] MEDS: ceFAZolin 2 GM/DEXTROSE 100 ML IV SCH ×3 (06:22→21:38)
[2018-05-08] MEDS: LEVOTHYROXINE 100 MCG TAB PO SCH (06:23)
--- NOTE | 2018-05-08 06:33 | CPEKG ---
Test Reason : OPEN Blood Pressure : / mmHG Vent. Rate : 064 BPM Atrial Rate : 064 BPM P-R Int : 160 ms QRS Dur : 118 ms QT Int : 424 ms P-R-T Axes : 072 066 099 degrees QTc Int : 438 ms Sinus rhythm Nonspecific intraventricular conduction delay Confirmed by Rivera Vines ([id number]) on 05/08/2018 6:33:44 AM Referred By: Confirmed By:Rivera Vines
[2018-05-08] MEDS: DOCUSATE SODIUM 100 MG CAP PO SCH (09:02)
[2018-05-08] MEDS: ENOXAPARIN 40 MG/0.4 ML SYR SC SCH (09:02)
[2018-05-08] MEDS: ASPIRIN 81 MG CHEWABLE TAB PO SCH ×2 (09:02→21:38)
[2018-05-08] MEDS: FLUTICASONE/SALMETER 100/50MCG DISKUS IH SCH (09:03)
--- NOTE | 2018-05-08 11:10 | PCMIDPN ---
Assessment/Plan: # Cellulitis right lateral thigh, possibly associated with incision s/p R RENE. Minimal irritability of R Hip, at this point feel infection is superficial. Erythema less intense today. CRP trending down. AF since admit --Ancef 1 more night with planned to transition to p.o. Keflex tomorrow 500 four times daily for 6 more days --f/u w me on 05/16 at 9:30am Meds Ancef 2gm IV q8, #3 Subjective: feeling well no c/o no diarrhea Objective: Vital Signs Temp Pulse Resp BP Pulse Ox 36.6 C 83 14 114/64 93 05/08/18 10:58 05/08/18 10:58 05/08/18 10:58 05/08/18 10:58 05/08/18 10:58 Laboratory Results 05/08/18 04:25 05/08/18 04:25 05/07/18 05/08/18 05/09/18 05:59 05:59 05:59 Intake Total 980 1600 Balance 980 1600 ESR 49 MM/HR (0-30) H 05/06/18 11:10 C-Reactive Protein 157.0 mg/L (<10.0) H 05/08/18 04:25 - Physical Exam General Appearance: alert, no apparent distress EENT: No pale conjunctiva Respiratory: lungs clear, No accessory muscle use Neck: supple Cardiac/Chest: regular rate, rhythm Extremities: inflammation (R lateral thigh linear pinkness, less intense than yesterday, very mild induration) Abdomen: non-tender, soft Skin: No rash Neuro/Psych: alert, normal mood/affect, oriented x 3 - Time Spent With Patient Time Spent with Patient: greater than 35 minutes (care coordinated with Dr. Nunez and Dr Kim) Time Spent with Patient: Greater than 35 minutes spent on this patients care, greater than 50% of time spent counseling, educating, and coordinating care regarding the above mentioned plan. ICD10 Worksheet Patient Problems: Problems Problem Status Onset Elevated troponin Acute Hyponatremia Acute Pleuritic chest pain Acute Status post right hip replacement Acute Osteoarthritis of right hip Acute
--- NOTE | 2018-05-08 15:57 | ASMTCMCOM ---
CM Note CM Note Notes: 05/08/2018 Case Management Note Met w/pt to discuss PT and OT recommendations to return home independently. Pt in agreement. Pt Leif [phone] to transport home upon discharge. No further case management d/c needs identified. Case Management d/c poc: Independent with follow up as directed. Case Management available if needs change. Date Signed: 05/08/2018 03:57 PM Electronically Signed By:Katie Gonzalez RN
[2018-05-08] MEDS: CYCLOBENZAPRINE 10 MG TAB PO PRN (21:38)
[2018-05-09] MEDS: HYDROCODONE/APAP 10/325 TAB PO PRN (01:13)
[2018-05-09] MEDS: DOCUSATE SODIUM 100 MG CAP PO SCH ×2 (02:14→08:51)
[2018-05-09] MEDS: POLYETHYLENE GLYCOL 3350 17 GM PKT PO SCH ×2 (02:17→12:19)
[2018-05-09] MEDS ORDERED: BISACODYL 10 MG SUPP PR PRN (05:05)
[2018-05-09] MEDS: LEVOTHYROXINE 100 MCG TAB PO SCH (05:27)
[2018-05-09] MEDS: ceFAZolin 2 GM/DEXTROSE 100 ML IV SCH ×2 (05:27→08:05)
[2018-05-09] MEDS: ENOXAPARIN 40 MG/0.4 ML SYR SC SCH (08:51)
[2018-05-09] MEDS: ASPIRIN 81 MG CHEWABLE TAB PO SCH (08:51)
[2018-05-09] MEDS: FLUTICASONE/SALMETER 100/50MCG DISKUS IH SCH (08:52)
[2018-05-09] MEDS: ACETAMINOPHEN 325 MG TAB PO PRN (09:22)
--- NOTE | 2018-05-09 10:13 | HOSPPROG ---
Hospitalist Progress Note Assessment/Plan: 63 yo F w recent RENE a/w fever, pleuritic pain, + trop fever: being treated for wound cellulitis elevated inflammatory markers, trending down early for prosthetic infection no pneumonia UA OK viral panel neg lft's slightly abnormal, doubt contributing to current situation ? prosthetic infection: as above + trop: seen by cardiology continue asa no coronary calcification possible toxic viral effect outpt stress proph: lmwh unless contraindicated by ortho dispo: home today > 30 minutes Subjective: afebrile. leg continues to improve. small bm Objective: Vital Signs Temp Pulse Resp BP Pulse Ox 36.5 C 79 12 143/87 H 96 05/09/18 07:54 05/09/18 07:54 05/09/18 07:54 05/09/18 07:54 05/09/18 07:54 Laboratory Results 05/08/18 04:25 05/08/18 04:25 05/08/18 05/09/18 05/10/18 05:59 05:59 05:59 Intake Total 1600 1020 Balance 1600 1020 PT 14.2 SEC (12.0-15.0) 05/05/18 20:09 INR 1.08 (0.83-1.16) 05/05/18 20:09 - Physical Exam Constitutional: no apparent distress, appears nourished Eyes: PERRL, anicteric sclera Ears, Nose, Mouth, Throat: moist mucous membranes, hearing normal Cardiovascular: regular rate and rhythym, no murmur, rub, or gallop Respiratory: no respiratory distress, no rales or rhonchi Gastrointestinal: normoactive bowel sounds, soft, non-tender abdomen Genitourinary: no bladder fullness, No campos in urethra Skin: warm, normal color Musculoskeletal: full muscle strength Neurologic: AAOx3 ICD10 Worksheet Patient Problems: Problems Problem Status Onset Elevated troponin Acute Hyponatremia Acute Pleuritic chest pain Acute Status post right hip replacement Acute Osteoarthritis of right hip Acute
--- NOTE | 2018-05-09 10:20 | SOAPPROG ---
SOAP Progress Note Assessment/Plan: Assessment: Postop day 5 status post right anterior total hip. Readmitted on postop day 3 with chest pain and fevers Plan: Weight-bearing as tolerated, PT/OT Cardiac workup essentially negative. Troponin due to demand ischemia in the setting of postoperative anemia. F/u with cardiology for stress test as directed Fevers: Minimal cellulitis, no abnormal hip pain for this stage in her postoperative course, urine culture with with staph epi., hip aspiration culture NGTD x48hrs, g stain negative, with 4+ PMNs, cell count was rejected due to inadequate sample. IV Ancef discontinued, plan for transition to PO. Appreciate ID's input. Disposition: home today, f/u with Dr. Jeronimo 05/14 and myself 05/2105/07/18 07:28 05/07/18 07:29 05/07/18 07:30 05/09/18 10:17 Subjective: Patient feels very well. Feels as though she does not need to take narcotic. She is anxious to go home. Denies fevers chills nausea vomiting chest pain shortness of breath numbness or tingling Objective: Vital Signs Temp Pulse Resp BP Pulse Ox 36.5 C 79 12 143/87 H 96 05/09/18 07:54 05/09/18 07:54 05/09/18 07:54 05/09/18 07:54 05/09/18 07:54 Laboratory Results 05/08/18 04:25 05/08/18 04:25 05/08/18 05/09/18 05/10/18 05:59 05:59 05:59 Intake Total 1600 1020 Balance 1600 1020 PT 14.2 SEC (12.0-15.0) 05/05/18 20:09 INR 1.08 (0.83-1.16) 05/05/18 20:09 No acute distress Easy nonlabored breathing Right hip/lateral thigh minimal cellulitis, dressing clean dry intact Thigh and calf compartments soft compressible No pain with logroll and axial load Neurovascularly intact distally - Pending Discharge Pending Discharge Within 24 Hours: Yes Pending Discharge Date: 05/09/18 Pending Discharge Time: 11:00 ICD10 Worksheet Patient Problems: Problems Problem Status Onset Elevated troponin Acute Hyponatremia Acute Pleuritic chest pain Acute Status post right hip replacement Acute Osteoarthritis of right hip Acute
--- NOTE | 2018-05-09 10:23 | PCMIDPN ---
Assessment/Plan: # Cellulitis right lateral thigh, possibly associated with incision s/p R RENE. Minimal irritability of R Hip, at this point feel infection is superficial. Erythema continues to improve. AF since admit --DC on p.o. Keflex 500mg four times daily for 6 more days --f/u w me on 05/16 at 9:30am Meds Ancef 2gm IV q8, #4 Subjective: Feeling well. Reports R-hip tenderness. Denies inguinal pain. IDalila, am scribing for, and in the presence of, Michelle Franklin MD. IMichelle MD, personally performed the services described in this documentation, as scribed by Dalila Main in my presence, and it is both accurate and complete. Objective: Vital Signs Temp Pulse Resp BP Pulse Ox 36.5 C 79 12 143/87 H 96 05/09/18 07:54 05/09/18 07:54 05/09/18 07:54 05/09/18 07:54 05/09/18 07:54 Laboratory Results 05/08/18 04:25 05/08/18 04:25 05/08/18 05/09/18 05/10/18 05:59 05:59 05:59 Intake Total 1600 1020 Balance 1600 1020 ESR 49 MM/HR (0-30) H 05/06/18 11:10 C-Reactive Protein 157.0 mg/L (<10.0) H 05/08/18 04:25 Microbiology: 05/05/18 Blood cx (2) NGTD. Urine cx grew, Staph epidermidis. 05/06/18 R-hip synovial fluid aspirate, NGTD. Nasal swab, negative by PCR. - Physical Exam General Appearance: alert, no apparent distress Respiratory: lungs clear, normal breath sounds, No respiratory distress Cardiac/Chest: regular rate, rhythm Extremities: other (R-lateral thigh with resolving pinkness, dressing over anterior upper thigh, mild induration to palpation ) Skin: warm/dry, No rash Neuro/Psych: oriented x 3 Lymphatic: other (no inguinal lymphadenopathy or tenderness to palpation ) ICD10 Worksheet Patient Problems: Problems Problem Status Onset Elevated troponin Acute Hyponatremia Acute Pleuritic chest pain Acute Status post right hip replacement Acute Osteoarthritis of right hip Acute
--- NOTE | 2018-05-09 10:29 | ASDISCHSUM ---
Discharge Information Plan Status:Home with No Needs Medically Cleared to Leave:05/08/2018 Discharge Date:05/08/2018 CM D/C Disposition:Home, Routine, Self-Care ADT D/C Disposition: Projected Discharge Date:05/08/2018 Transportation at D/C:Family Discharge Delay Reason: Follow-Up Date:05/08/2018 Discharge Slot: Final Diagnosis: Placement Information Patient Contact Information Contact Name:LOYDAUMARuchi Relationship: Address: City: [facility] Phone: [facility] Code: Email: Financial Information Financial Class:HMO and PPO Plans Primary Plan Desc:[employer] Primary Plan Number:[id number] Secondary Plan Desc: Secondary Plan Number: Assessment Information LACE LACE Length of stay for Answers: 2 days current admission Acuity / Level of Answers: Yes Care: Did the patient have an inpatient admission? Comorbidities - select Answers: Opioid dependence all that apply / Chronic pain Other Notes: Degenerative joint disease; Spinal stenosi s # of Emergency department Answers: 1-2 visits in the last 6 months Score: 11 Date Signed: 05/09/2018 10:27 AM Electronically Signed By:Katie Gonzalez RN [facility] CM Progress Note CM Note CM Note Notes: Pt is a 63 y/o female admitted for chest pain. Pt will most likely d/c independent when medically stable. No therapies ordered at this time. Cards has been consulted. CM available for changes. Plan: Independent Date Signed: 05/06/2018 11:12 AM Electronically Signed By:GA Cuevas [facility] CM Progress Note CM Note CM Note Notes: Pt reports nervousness about going home independently. RN notified CM and MD. ordered PT/OT eval. CM to follow to determine discharge needs. Plan: TBD Date Signed: 05/07/2018 04:29 PM Electronically Signed By:GA Mackey [facility] CM Progress Note CM Note CM Note Notes: 05/08/2018 Case Management Note Met w/pt to discuss PT and OT recommendations to return home independently. Pt in agreement. Pt Leif [phone] to transport home upon discharge. No further case management d/c needs identified. Case Management d/c poc: Independent with follow up as directed. Case Management available if needs change. Date Signed: 05/08/2018 03:57 PM Electronically Signed By:Katie Gonzalez RN Case Management Discharge Plan Note Case Management Discharge Discharge Order Complete? Answers: Yes Patient to Obtain Answers: via Family Medications Transportation Arranged Answers: Family/Friends Discharge Comments Notes: 05/09/2018 Case Management Note PT recommending home with outpatient rehab. Pt to transport home. Case Management d/c poc: home with family support and follow up as directed. Date Signed: 05/09/2018 10:28 AM Electronically Signed By:Katie Gonzalez RN Intervention Information
[2018-05-09] MEDS ORDERED: CEPHALEXIN 500 MG CAP PO ONE ×2 (11:15→11:30)
[2018-05-09 12:20] VITALS: BP 143/87
--- NOTE | 2018-05-09 13:34 | GDS ---
DISCHARGE DIAGNOSES: 1. Fever. 2. Presumed surgical wound cellulitis. 3. Positive troponin with no coronary calcification. 4. Constipation. 5. Hypothyroidism. Please see admission History and Physical by Dr. Aramis Goel. The patient presented with pl euritic chest pain. She had a negative CT-PE. She also had some low-grade temperatures. Her tropon in was low level positive 0.136. It trended down thereafter. Her EKG was nonischemic. She did not have a previous history of coronary artery disease. She was seen by Cardiology who recommended aspir in therapy and outpatient stress test. Regarding her fever, there was some concern that her recently replaced hip was involved. This was do ne just after the 1st of this year. There was an aspiration done which really yielded very scant flu id and unable to do a cell count. The Gram stain was unremarkable. The cultures were pending. She had negative blood cultures. She had a negative respiratory panel. She did have erythema around the wound and elevated CRP suggestive of a localized wound infection. She was seen by Infectious Disefede pettit. She was treated with Ancef for the duration of this hospital stay and was discharged on 6 additio nal days of Keflex. She was followed daily by Orthopedics. The patient did have some constipation. She had 1 small bowel movement. She will take b.i.d. MiraLA X until she begins to move her bowels. DVT prophylaxis is at the discretion of Orthopedics. /[id number]/MODL
== END 2018-05-09 14:00 | disposition home or self-care (01) | DRG 863 ==
LOC: F2W 23:13 → OBSVTOIN 05-06 16:20
PROVIDERS: ADMIT Student in an Organized Health Care Education/Training Program; ATTEND Student in an Organized Health Care Education/Training Program
PROC: 0S993ZX Drainage of Right Hip Joint, Percutaneous Approach, Diagnostic (ICD-10-PCS; principal; 2018-05-06)
DX: T81.41XA Infection following a procedure, superficial incisional surgical site, initial encounter (principal); E87.1 Hypo-osmolality and hyponatremia; R07.9 Chest pain, unspecified; D64.9 Anemia, unspecified; Z96.641 Presence of right artificial hip joint; E03.9 Hypothyroidism, unspecified; J45.909 Unspecified asthma, uncomplicated; K59.00 Constipation, unspecified
CPT/HCPCS: 84484-ER; 96374; 97116-GP; 97161-GP; 97165-GO; G0378; J0690; J1170; J1650; Q9967